=== PATIENT | male | born 1950 | race Caucasian/White ===

== ENCOUNTER → 2016-11-18 | Outpatient (CLI) | payer MEDICARE, MEDICAID ==
[~2016-11-18] MED LIST: AC325T PO; ALPR.25T PO; CARV12.52 PO; CARV25TA30 PO; CHOL10002 PO; CHOL200014 PO; CRV6.25T PO; DABI150C PO; DIAZ2TAB PO; DIGO250T6 PO; DILT120T3 PO; DILT180T PO; DILT240T PO; DILT90TA18 PO; DLT180CCR PO; GLMP2T PO; HYDR-3702 PO; NFMET1000 PO; OMEP20CA6 PO; PRAV40TA PO; SERT100T PO; WARF1TAB PO; WARF2TAB PO
== END ==
LOC: EMS 10:05
PROVIDERS: ATTEND Emergency Medicine
DX: R20.0 Anesthesia of skin (principal); R53.1 Weakness

== ENCOUNTER → 2016-11-18 | Emergency (ER) | payer MEDICARE, MEDICAID ==
[~2016-11-18] VITALS: Ht 180.3 cm; Wt 85.0 kg
[~2016-11-18] MED LIST changes: +SODIUM CHLORIDE FLUSH 10 ML SYR IV PRN; +SODIUM CHLORIDE FLUSH 3 ML SYR IV PRN
[2016-11-18 10:20] VITALS: BP 147/108
[2016-11-18 11:20] LABS: BASOPHILS % (AUTO) 1 % (0-2); EOSINOPHILS # (AUTO) 0.2 10^3uL; EOSINOPHILS % (AUTO) 2 % (0-4); LYMPHOCYTES # (AUTO) 1.6 X10^3; MEAN PLATELET VOLUME 11.5 FL (6.0-9.5); MONOCYTES # (AUTO) 0.9 X10^3; MONOCYTES % (AUTO) 11 % (3-11); NEUTROPHILS # (AUTO) 5.8 X10^3; NEUTROPHILS % (AUTO) 68 % (51-67); PLATELET COUNT 223 10^3uL (150-450); WHITE BLOOD COUNT 8.59 10^3uL (4.0-11.0)
[2016-11-18 11:26] LABS: ALBUMIN 4.3 g/dL (3.4-5.0); ALKALINE PHOSPHATASE 126 U/L (38-126); ANION GAP 18.8 MEQ/L (3-15); BUN/CREATININE RATIO 17 (10-20); TOTAL PROTEIN 8.4 g/dL (6.4-8.5)
[2016-11-18 11:27] LABS: MEAN CORPUSCULAR HEMOGLOBIN 23.4 PG (26.0-34.0); MEAN CORPUSCULAR HGB CONC 31.6 g/dL (31.0-37.0); MEAN CORPUSCULAR VOLUME 74 FL (80-100)
--- NOTE | 2016-11-18 11:56 | Diagnostic Imaging Report ---
CLINICAL INDICATION: Patient with right-sided weakness. EXAM: Axial CT scan of brain performed without IV contrast. COMPARISON: Head CT without IV contrast dated 06/09/2016. FINDINGS: There is no significant change to the diffuse patchy and confluent areas of low-attenuation white matter changes in both cerebral hemispheres suspected to represent chronic small vessel ischemic disease and leukoaraiosis. There is no evidence of intracranial hemorrhage, hydrocephalus, or brain herniation. There is stable brain parenchymal volume loss. Basal cisterns are unremarkable. Extra cranial soft tissue, skull, and orbits are unremarkable. There is minimal mucosal thickening involving the right maxillary sinus. IMPRESSION: 1: There is no definite CT evidence of interval acute cerebral infarction, intracranial hemorrhage, or mass seen. Given the diffuse low attenuation changes throughout the brain parenchyma which can obscure more subtle findings, if there is clinical concern for acute cerebral infarction, MRI of the brain would better evaluate. 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 Dictated by: Dictated on workstation # [id number]
== END | disposition home or self-care (01) ==
LOC: EDUNIT# 10:20 → ED 10:21
DX: R20.8 Other disturbances of skin sensation (principal)
CPT/HCPCS: 36415; 70450; 80053; 84484; 85025; 93005; 93010; 99285

== ENCOUNTER → 2016-11-29 | Outpatient (CLI) | payer MEDICARE, MEDICAID ==
[~2016-11-29] MED LIST changes: -SODIUM CHLORIDE FLUSH 10 ML SYR IV PRN; -SODIUM CHLORIDE FLUSH 3 ML SYR IV PRN
--- NOTE | 2016-11-29 16:48 | Diagnostic Imaging Report ---
Indication: Metal work. Study is performed for MRI clearance. Single view of the orbits reveals no intraorbital metallic foreign body to preclude MRI scan. Impression: No metallic intraorbital foreign body is seen. Dictated by: Dictated on workstation # [id number]
--- NOTE | 2016-11-29 18:44 | Diagnostic Imaging Report ---
PROCEDURE: MR imaging of the brain with and without contrast. INDICATION: Tingling and numbness on the right side x2 days. TECHNIQUE: Multiplanar, multisequence MR imaging of the brain was performed with and without contrast. CORRELATION STUDY: None. FINDINGS: There is a small area of restricted diffusion of the left thalamus. This area measures approximately 1 cm maximum dimension. Some these areas do demonstrate decreased signal intensity in the coefficient images. On postcontrast imaging, there is a small area of nodular enhancement measuring 4 mm. This area is hyperintense on T2 sequences. Features favor probable area of acute infarct. The remainder of the examination demonstrates generalized atrophic changes with prominence of ventricles and sulci. Rather prominent scattered areas of hyperintense T2 signal changes, likely reflecting chronic small vessel ischemic disease. No midline shift or mass effect. No suggestion for hemorrhage apart from the area of enhancement of the left thalamus, no additional areas of abnormal post contrast-enhancement. The craniocervical junction, midline structures including sella are unremarkable. Relatively normal expected intracranial flow voids. IMPRESSION: Approximately 1 cm area of restricted diffusion of the left thalamus most compatible with likely acute ischemia. There is some enhancement in this area. Would recommend followup imaging be obtained in approximately one month for reassessment. The findings were given to Dr. Monroe, answering for Dr. Conner Palma, by Dr. Hayden prior to dictation. Dictated by: Dictated on workstation # [id number]
== END ==
LOC: RAD 16:02
PROVIDERS: ATTEND Family Medicine
DX: R20.2 Paresthesia of skin (principal); Z77.018 Contact with and (suspected) exposure to other hazardous metals
CPT/HCPCS: 70140; 70553; A9579